=== PATIENT | male | born 1945 | race African-American/Black ===

== ENCOUNTER 2018-04-12 10:13 | Emergency (ER) | payer MEDICARE, MEDICAID ==
[~2018-04-12] VITALS: Ht 172.7 cm; Wt 66.0 kg
[~2018-04-12 10:13] MED LIST: AMLO10TA80 PO; ARIP20TA9 PO; ATOR20TA65 PO; DONE10TA43 PO; FERR325T23 PO; LISI-604 PO; MIRT15TA6 PO; TAMS0.4C31 PO
[2018-04-12 11:27] VITALS: BP 159/93
== END 2018-04-12 15:40 | disposition left against medical advice (07) ==
LOC: ER 13:09
DX: L02.412 Cutaneous abscess of left axilla (principal); R22.31 Localized swelling, mass and lump, right upper limb
CPT/HCPCS: 99281

== ENCOUNTER 2018-11-19 20:06 | Emergency (ER) | payer MEDICARE, MEDICAID ==
[~2018-11-19] VITALS: Ht 172.7 cm; Wt 60.9 kg
[2018-11-19] MEDS ORDERED: ALBUTEROL (0.083%) 2.5MG/3ML NEB HHN STA (23:53)
[2018-11-19] MEDS ORDERED: IPRATROPIUM BROMIDE (0.02%) 0.5MG/2.5ML NEB HHN STA (23:53)
[2018-11-19] MEDS ORDERED: METHYLPREDNISOLONE SOD SUCC 125 MG/2 ML VIAL IV STA (23:53)
[2018-11-20] MEDS ORDERED: IBUPROFEN 400MG TABLET PO ONE
[2018-11-20] MEDS ORDERED: ASPIRIN 81MG TABLET PO ONE
[2018-11-20 00:37] LABS: BASOPHILS % 0.7 % (0.0-2.0); EOSINOPHILS % 3.7 % (0.0-5.0); HEMOGLOBIN. 13.9 g/dL (14.0-18.0); LYMPHOCYTES % 38.9 % (20.0-50.0); MEAN CORPUSCULAR HEMOGLOBIN 27.3 pg (28.0-32.0); MEAN CORPUSCULAR VOLUME 84.6 fL (80.0-94.0); MEAN PLATELET VOLUME 8.2 fl (7.4-10.4); MONOCYTES % 8.5 % (2.0-8.0); NEUTROPHILS % 48.2 % (40.0-76.0); PLATELET 196 x1000/uL (130-400); RED BLOOD CELL COUNT 5.08 mill/uL (4.7-6.1); RED CELL DISTRIBUTION WIDTH 14.9 % (11.6-14.6)
[2018-11-20 00:44] LABS: CHLORIDE 105 mEq/L (98-107)
[2018-11-20 00:47] LABS: PARTIAL THROMBOPLASTIN TIME 32.5 sec (23.4-31.0); PROTHROMBIN TIME 10.3 sec (9.1-11.1)
[2018-11-20 02:40] VITALS: BP 137/74
== END 2018-11-20 02:47 | disposition left against medical advice (07) ==
LOC: ER 20:06
DX: I48.91 Unspecified atrial fibrillation (principal); J44.1 Chronic obstructive pulmonary disease with (acute) exacerbation
CPT/HCPCS: 36415; 71045; 80053; 83880; 84443; 84484; 85025; 85610; 85730; 87070; 87430; 93005; 94644; 96374; 99285; J2930; J7611

== ENCOUNTER 2018-11-29 16:10 | Emergency (ER) | payer MEDICARE, MEDICAID ==
[~2018-11-29] VITALS: Ht 172.7 cm; Wt 60.0 kg
[2018-11-29 17:10] VITALS: BP 155/97
== END 2018-11-29 20:55 | disposition left against medical advice (07) ==
LOC: ER 16:10
DX: M79.672 Pain in left foot (principal); M79.671 Pain in right foot; Z53.21 Procedure and treatment not carried out due to patient leaving prior to being seen by health care provider

== ENCOUNTER 2019-02-28 09:15 | Emergency (ER) | payer MEDICARE, MEDICAID ==
[~2019-02-28] VITALS: Ht 172.7 cm; Wt 62.0 kg
[2019-02-28] MEDS ORDERED: ALBUTEROL (0.083%) 2.5MG/3ML NEB HHN STA (09:52)
[2019-02-28] MEDS ORDERED: IPRATROPIUM BROMIDE (0.02%) 0.5MG/2.5ML NEB HHN STA (09:52)
[2019-02-28] MEDS ORDERED: METHYLPREDNISOLONE SOD SUCC 125 MG/2 ML VIAL IV STA (09:52)
[2019-02-28 10:20] LABS: BASOPHILS % 0.4 % (0.0-2.0); EOSINOPHILS % 1.7 % (0.0-5.0); HEMOGLOBIN. 14.6 g/dL (14.0-18.0); LYMPHOCYTES % 17.1 % (20.0-50.0); MEAN CORPUSCULAR HEMOGLOBIN 27.6 pg (28.0-32.0); MEAN CORPUSCULAR VOLUME 85.1 fL (80.0-94.0); MEAN PLATELET VOLUME 8.2 fl (7.4-10.4); MONOCYTES % 7.5 % (2.0-8.0); NEUTROPHILS % 73.3 % (40.0-76.0); PLATELET 226 x1000/uL (130-400); RED BLOOD CELL COUNT 5.29 mill/uL (4.7-6.1); RED CELL DISTRIBUTION WIDTH 14.8 % (11.6-14.6)
[2019-02-28 10:26] LABS: CHLORIDE 103 mEq/L (98-107)
[2019-02-28 13:15] VITALS: BP 145/91
== END 2019-02-28 13:33 | disposition home or self-care (01) ==
LOC: ER 09:15 → EDBEDREQ 12:29 → ER 13:33 → CANRESERV 14:06 → ENRESERV 14:06 → CANBEDREQ 16:00
DX: J44.1 Chronic obstructive pulmonary disease with (acute) exacerbation (principal); N40.0 Benign prostatic hyperplasia without lower urinary tract symptoms; I10 Essential (primary) hypertension; E78.00 Pure hypercholesterolemia, unspecified; Z96.649 Presence of unspecified artificial hip joint; Z90.89 Acquired absence of other organs; Z87.891 Personal history of nicotine dependence
CPT/HCPCS: 36415; 71045; 80053; 83880; 84484; 85025; 93005; 94640; 96374; 99284; J2930; J7611

== ENCOUNTER 2019-03-04 21:04 | Emergency (ER) | payer MEDICARE, MEDICAID ==
[~2019-03-04] VITALS: Ht 172.7 cm; Wt 62.0 kg
[2019-03-04] MEDS ORDERED: ASPIRIN 81MG TABLET PO ONE (23:15)
[2019-03-04] MEDS ORDERED: NITROGLYCERIN 0.4MG TABLET SL SL PRN (23:15)
[2019-03-04 23:54] LABS: CHLORIDE 106 mEq/L (98-107)
[2019-03-05 00:05] LABS: BASOPHILS % 0.7 % (0.0-2.0); EOSINOPHILS % 3.3 % (0.0-5.0); HEMATOCRIT. 39.1 % (42.0-52.0); HEMOGLOBIN. 12.9 g/dL (14.0-18.0); MEAN CORPUSCULAR HEMOGLOBIN 27.8 pg (28.0-32.0); MEAN CORPUSCULAR VOLUME 84.1 fL (80.0-94.0); MEAN PLATELET VOLUME 8.1 fl (7.4-10.4); MONOCYTES % 7.9 % (2.0-8.0); NEUTROPHILS % 48.1 % (40.0-76.0); PLATELET 240 x1000/uL (130-400); RED BLOOD CELL COUNT 4.66 mill/uL (4.7-6.1); RED CELL DISTRIBUTION WIDTH 14.2 % (11.6-14.6)
[2019-03-05 00:10] LABS: D-DIMER 0.54 mg/L FEU (<0.50); PARTIAL THROMBOPLASTIN TIME 28.9 sec (23.4-31.0); PROTHROMBIN TIME 9.9 sec (9.6-11.0)
[2019-03-05 00:53] VITALS: BP 127/100
[2019-03-05 01:11] LABS: *COCAINE SCREEN URINE NEGATIVE (NEGATIVE)
[2019-03-05 01:12] LABS: METHADONE URINE SCREEN NEGATIVE (NEGATIVE)
[2019-03-05 01:13] LABS: OPIATES URINE SCREEN NEGATIVE (NEGATIVE); PHENCYCLIDINE URINE SCREEN NEGATIVE (NEGATIVE)
[2019-03-05 01:14] LABS: *AMPHETAMINES SCREEN URINE NEGATIVE (NEGATIVE); *BARBITURATES SCREEN URINE NEGATIVE (NEGATIVE); *BENZODIAZEPINES SCREEN URINE NEGATIVE (NEGATIVE); CANNABINOID URINE SCREEN NEGATIVE (NEGATIVE)
== END 2019-03-05 01:39 | disposition left against medical advice (07) ==
LOC: ER 21:04 → CANBEDREQ 03-05 08:18
DX: R07.89 Other chest pain (principal); R79.1 Abnormal coagulation profile; M79.662 Pain in left lower leg; D64.9 Anemia, unspecified; F14.10 Cocaine abuse, uncomplicated; F17.210 Nicotine dependence, cigarettes, uncomplicated
CPT/HCPCS: 36415; 71045; 73562; 80305; 83880; 84484; 85379; 93005; 99284

== ENCOUNTER 2022-07-20 11:55 | Emergency (ER) | payer MEDICARE, MEDICAID ==
[~2022-07-20] VITALS: Ht 175.3 cm; Wt 54.0 kg
[~2022-07-20 11:55] MED LIST changes: +ARIP20TA16 PO; -ARIP20TA9 PO; -LISI-604 PO; +LISI20TA31 PO; +MIRT-89 PO; -MIRT15TA6 PO
[2022-07-20 11:58] VITALS: BP 136/85
[2022-07-20] MEDS ORDERED: ACETAMINOPHEN 500MG TABLET PO ONE (13:30)
[2022-07-20] MEDS ORDERED: TETANUS, DIPHTHERIA, PERTUSSIS VAC/PF 0.5ML (>10YR OLD) IM ONE (13:30)
[2022-07-20] MEDS ORDERED: AMOX1TAB15 MT (14:30)
[2022-07-20] MEDS ORDERED: ACET-2708 MT (14:30)
[2022-07-20] MEDS ORDERED: BACITRACIN ZINC OINT UDPKT TOP ONE (14:45)
== END 2022-07-20 14:50 | disposition home or self-care (01) ==
LOC: ER 12:07
DX: S60.932A Unspecified superficial injury of left thumb, initial encounter (principal); S61.002A Unspecified open wound of left thumb without damage to nail, initial encounter; X58.XXXA Exposure to other specified factors, initial encounter; Y93.89 Activity, other specified; Y92.89 Other specified places as the place of occurrence of the external cause; Y99.8 Other external cause status; J44.9 Chronic obstructive pulmonary disease, unspecified; E11.9 Type 2 diabetes mellitus without complications; E78.00 Pure hypercholesterolemia, unspecified; I10 Essential (primary) hypertension; F14.10 Cocaine abuse, uncomplicated
CPT/HCPCS: 73140; 90471; 90715; 99283

== ENCOUNTER 2024-09-24 14:34 | Emergency (ER) | payer MEDICARE, MEDICAID ==
[~2024-09-24] VITALS: Ht 182.9 cm; Wt 70.0 kg
[~2024-09-24 14:34] MED LIST changes: +ALBU18HF2 IH; -ARIP20TA16 PO; +ARIP20TA62 PO; +ATOR20TA PO; -ATOR20TA65 PO; +GUAI600T26 MT; +IPRA3AMP9 HHN
[2024-09-24 14:40] VITALS: O2SAT 100
[2024-09-24 15:31] LABS: BASOPHILS % 0.3 % (0.0-2.0); EOSINOPHILS % 0.7 % (0.0-5.0); HEMATOCRIT. 32.3 % (42.0-52.0); HEMOGLOBIN. 10.3 g/dL (14.0-18.0); LYMPHOCYTES % 19.5 % (20.0-50.0); MEAN CORPUSCULAR HEMOGLOBIN 25.9 pg (28.0-32.0); MEAN CORPUSCULAR HGB CONC 31.9 g/dL (31.0-37.0); MEAN CORPUSCULAR VOLUME 81.2 fL (80.0-94.0); MEAN PLATELET VOLUME 8.2 fl (7.4-10.4); MONOCYTES % 7.5 % (2.0-8.0); PLATELET 315 x1000/uL (130-400); RED BLOOD CELL COUNT 3.98 mill/uL (4.7-6.1); RED CELL DISTRIBUTION WIDTH 15.3 % (11.6-14.6); WHITE BLOOD COUNT 7.2 x1000/uL (4.5-11.0)
[2024-09-24 15:37] LABS: CHLORIDE 106 mEq/L (98-107); POTASSIUM 3.2 mEq/L (3.5-5.1); SODIUM 139 mEq/L (136-145)
[2024-09-24 15:38] LABS: CARBON DIOXIDE 28 mEq/L (21-32)
[2024-09-24 15:39] LABS: BG BASE EXCESS -1.7 mmol/L (-2.0-3.0); BG CARBOXYHEMOGLOBIN 1.2 % (0.5-1.5); BG DEOXYHEMOGLOBIN 7.8 % (0.0-5.0); BG HCO3 ACT 22.1 mmol/L (21.0-28.0); BG METHEMOGLOBIN 0.3 % (0.5-1.5); BG OXYGEN SATURATION 92.1 % (94.0-98.0); BG OXYHEMOGLOBIN 90.7 % (94.0-98.0); BG PCO2 33.6 mmHg (35.0-48.0); BG PH 7.435 (7.350-7.450); BG SAMPLE SITE RIGHT BRACHIAL; BG TOTAL HEMOGLOBIN 10.4 g/dL (13.5-17.5); BG VENT MODE NASAL CANNULA
[2024-09-24 15:39] LABS: CALCIUM 9.2 mg/dL (8.7-10.4)
[2024-09-24 15:43] LABS: CREATININE 0.8 mg/dL (0.6-1.3); GLUCOSE 102 mg/dL (70-105); UREA NITROGEN BLOOD 13 mg/dL (9-23)
[2024-09-24 15:45] LABS: TROPONIN I HIGH SENSITIVITY 11 ng/L (3.0-53)
[2024-09-24] MEDS ORDERED: IPRATROPIUM/ALBUTEROL 0.5-3(2.5)MG/3ML NEB HHN NR (16:30)
[2024-09-24] MEDS ORDERED: POTASSIUM CHLORIDE 20MEQ/PACKET PO NR (16:30)
[2024-09-24 18:49] VITALS: BP 144/71; PULSE 89; RESP 20; TEMP 37.05852; O2SAT 98
== END 2024-09-24 18:55 | disposition short-term general hospital (02) ==
LOC: ER 14:45 → EDBEDREQ 15:16 → ER 18:55
DX: R06.02 Shortness of breath (principal); I10 Essential (primary) hypertension; E11.9 Type 2 diabetes mellitus without complications; E78.00 Pure hypercholesterolemia, unspecified; J44.9 Chronic obstructive pulmonary disease, unspecified; F17.210 Nicotine dependence, cigarettes, uncomplicated; F14.90 Cocaine use, unspecified, uncomplicated; Z79.899 Other long term (current) drug therapy; Z90.89 Acquired absence of other organs; Z96.649 Presence of unspecified artificial hip joint
CPT/HCPCS: 36415; 36600; 71045; 80048; 82375; 82805; 83880; 84484; 85025; 93005; 94644; 99285

== ENCOUNTER 2025-01-29 08:54 | Emergency (ER) | payer MEDICARE, MEDICAID ==
[~2025-01-29] VITALS: Ht 170.2 cm; Wt 70.0 kg
[~2025-01-29 08:54] MED LIST changes: +ALBU90AE INH; +AMLO10TA80 MT; +APIX5TAB MT; +ATOR40TA70 MT; +LISI20TA31 MT; +TAMS-54 MT
[2025-01-29 08:57] VITALS: O2SAT 98
[2025-01-29 09:58] LABS: BASOPHILS % 0.3 % (0.0-2.0); DIFFERENTIAL COMMENT 0; EOSINOPHILS % 1.5 % (0.0-5.0); HEMATOCRIT. 31.5 % (42.0-52.0); LYMPHOCYTES % 22.5 % (20.0-50.0); MEAN CORPUSCULAR HEMOGLOBIN 25.1 pg (28.0-32.0); MEAN CORPUSCULAR HGB CONC 31.9 g/dL (31.0-37.0); MEAN CORPUSCULAR VOLUME 78.7 fL (80.0-94.0); MEAN PLATELET VOLUME 7.5 fl (7.4-10.4); NEUTROPHILS % 67.7 % (40.0-76.0); PLATELET 334 x1000/uL (130-400); RED CELL DISTRIBUTION WIDTH 16.4 % (11.6-14.6); WHITE BLOOD COUNT 6.6 x1000/uL (4.5-11.0)
[2025-01-29 10:03] LABS: CHLORIDE 102 mEq/L (98-107); POTASSIUM 4.5 mEq/L (3.5-5.1); SODIUM 138 mEq/L (136-145)
[2025-01-29 10:04] LABS: CALCIUM 9.8 mg/dL (8.7-10.4); CARBON DIOXIDE 30 mEq/L (21-32)
[2025-01-29 10:09] LABS: CREATININE 0.9 mg/dL (0.6-1.3); GLUCOSE 81 mg/dL (70-105)
[2025-01-29 10:10] LABS: UREA NITROGEN BLOOD 12 mg/dL (9-23)
[2025-01-29 10:11] LABS: ALANINE AMINOTRANSFERASE 46 IU/L (10-49); ALBUMIN 3.9 g/dL (3.2-4.8); ASPARTATE AMINOTRANSFERASE 33 IU/L (<34); BILIRUBIN DIRECT < 0.1 mg/dL (<=3.0)
[2025-01-29 10:12] LABS: BILIRUBIN TOTAL 0.3 mg/dL (0.1-1.0); PROTEIN TOTAL 6.9 g/dL (6.0-8.3)
[2025-01-29] MEDS ORDERED: POLY17PO3 MT (11:13)
[2025-01-29] MEDS: DOCUSATE SODIUM 250MG CAPSULE PO ONE (11:38)
[2025-01-29 15:21] VITALS: BP 119/83; PULSE 72; RESP 16; TEMP 36.7; O2SAT 98
== END 2025-01-29 15:36 ==
LOC: ER 09:08
DX: K59.00 Constipation, unspecified (principal); E11.9 Type 2 diabetes mellitus without complications; E78.00 Pure hypercholesterolemia, unspecified; I10 Essential (primary) hypertension; J44.89 Other specified chronic obstructive pulmonary disease; Z96.641 Presence of right artificial hip joint; Z90.89 Acquired absence of other organs; Z79.899 Other long term (current) drug therapy; Z79.01 Long term (current) use of anticoagulants
CPT/HCPCS: 36415; 74018; 80048; 80076; 85025; 99284